=== PATIENT | female | born 1975 | race Two or more races ===

== ENCOUNTER 2016-11-06 00:57 | Emergency (ER) | payer MEDICAID, OTHER ==
[~2016-11-06] VITALS: Ht 165.1 cm; Wt 66.6 kg
[~2016-11-06 00:57] MED LIST: HYDR-3240 PO
[2016-11-06 00:59] VITALS: BP 116/74
[2016-11-06 02:02] LABS: HEMATOCRIT 43.6 % (34.6-47.8); HEMOGLOBIN 14.4 g/dL (11.7-16.4); WHITE BLOOD COUNT 10.3 x10^3/uL (3.4-10)
[2016-11-06 02:15] LABS: BLOOD UREA NITROGEN 14 mg/dL (7-18)
[2016-11-06] MEDS ORDERED: CIPROFLOXACIN 500 MG TABLET ONE (02:54)
[2016-11-06] MEDS ORDERED: CIPROFLOXACIN 500 MG TABLET PO ONE (03:00)
== END 2016-11-06 03:02 | disposition home or self-care (01) ==
LOC: ED 02:56
DX: N39.0 Urinary tract infection, site not specified (principal); K59.00 Constipation, unspecified; Z90.49 Acquired absence of other specified parts of digestive tract
CPT/HCPCS: 36415; 74000; 80048; 81001; 82040; 83690; 84703; 85025; 87086; 99285